=== PATIENT | female | born 1955 | race Caucasian/White ===

== ENCOUNTER → 2017-01-28 | Outpatient (CLI) | payer OTHER ==
[~2017-01-28] MED LIST: BAYER ASPIRIN C81 MG PO; LEVOTHYROXIN0.125 MG PO; METFORMIN500 MG PO; NORVASC10 MG PO; Nizoral 2%15 GM T; PRINIVIL20 M1 PO
== END | disposition home or self-care (01) ==
LOC: US 05:52
DX: K76.0 Fatty (change of) liver, not elsewhere classified (principal); N93.9 Abnormal uterine and vaginal bleeding, unspecified; N95.0 Postmenopausal bleeding; I10 Essential (primary) hypertension; E11.9 Type 2 diabetes mellitus without complications; Z90.49 Acquired absence of other specified parts of digestive tract

== ENCOUNTER → 2017-03-15 | Day surgery (SDC) | payer OTHER ==
[2017-03-09 10:47] LABS: BASO # 0.1 10*3/uL (0.0-0.1); BASO % 0.6 % (0.0-1.0); EOS # 0.2 10*3/uL (0.0-0.4); EOS % 1.7 % (1.0-4.0); HEMATOCRIT 39.7 % (37.0-47.0); HEMOGLOBIN 13.4 g/dl (12.0-16.0); IG # 0.2 10*3/uL (0.0-0.1); LYMPH # 2.5 10*3/uL (1.3-4.4); MEAN CELL VOLUME 88.6 fl (81.0-99.0); MEAN CORPUSCULAR HGB 29.9 pg (27.0-31.0); MEAN CORPUSCULAR HGB CONC 33.8 g/dl (33.0-37.0); MONO # 0.5 10*3/uL (0.1-1.0); MONO % 5.3 % (3.0-9.0); NEUT # 5.4 10*3/uL (2.3-7.9); NEUT % 61.5 % (47.0-73.0); PLATELET COUNT AUTOMATED 271 10*3/uL (130-400); RED BLOOD COUNT 4.48 10*6/uL (4.10-5.10); RED CELL DISTRI WIDTH 13.9 % (0-14.5); WHITE BLOOD COUNT 8.7 10*3/uL (4.8-10.8)
[~2017-03-15] VITALS: Ht 157.4 cm; Wt 113.4 kg
[~2017-03-15] MED LIST changes: +RITALIN5 MG PO; +VITAMIN D32000 UNI1 PO
--- NOTE | ~2017-03-15 | WRIGHTHP ---
[place], [place] PATIENT HISTORY AND PHYSICAL EXAM [facility]: [id number] UNIT #: [id number] ROOM: DOCTOR: FERNANDEZ AMARAL MD BIRTHDATE: [birth year] DOS: 03/15/2017 HISTORY OF PRESENT ILLNESS: This patient is a 61-year-old white female, 3, para 3, who was seen 02/10/2017, with recent ultrasound indicating a normal pelvis with an endometrial thickness of 1.3 cm. The patient's complaints have occurred over the past 3 weeks with 11 days of spotting heavy enough to necessitate pad use. On that day, she was seen, she was bleeding only with urination, etc., but had negative Pap earlier this year by history and has had no genitourinary symptoms. She states that a number of years ago we had addressed irregular bleeding, but this was 8 years ago and evaluation at that time had been negative. The cervical os in the office was noted to be somewhat stenotic and I was unable to penetrate this with the dilator. Bimanual exam was not helpful due to her significant increase in BMI, and we concluded that since we were unable to do the endometrial evaluation in the office that an outpatient hysteroscopy and D and C would be indicated. To that end, the risks, benefits, indications, potential complications and alternatives were reviewed, understanding stated and the consent was signed. PAST MEDICAL HISTORY: Reveals her to be a nonsmoker and nondrinker. She has a history of hypertension and diabetes. She has had 3 pregnancies, 3 vaginal deliveries. She had a negative colonoscopy in April 2016. Her Pap and mammogram were also negative in 2015. MEDICATIONS: The patient is taking levothyroxine 125 mcg daily for thyroid disorder, amlodipine besylate 10 mg daily for hypertension, lisinopril 20 mg daily for hypertension, metformin 500 mg daily for diabetes, Ritalin 5 mg for restless legs syndrome, sleep and she does take vitamin D. She also takes a baby aspirin daily. ALLERGIES: She notes no known allergies. REVIEW OF SYSTEMS: Otherwise is stable. FAMILY HISTORY: Reveals her father from a brain tumor and there is other various forms of breast, lung and uterus and colon cancer in the family. One sister from kidney failure and one son from a motor vehicle accident. PHYSICAL EXAMINATION: GENERAL: Reveals a pleasant white female, 5 feet 1 inches, 253 pounds, BMI is 48 and in no significant distress. HEENT: Stable. NECK: Stable. LUNGS: Stable. CARDIAC: Stable. BREASTS: Stable. ABDOMEN: Normal except for consistent with the BMI. EXTREMITIES: Grossly intact. NEUROLOGICAL: Grossly intact. GENITOURINARY: External genitalia, vagina and cervix all grossly normal, but [place], [place] PATIENT HISTORY AND PHYSICAL EXAM [facility]: [id number] UNIT #: [id number] ROOM: DOCTOR: FERNANDEZ AMARAL MD BIRTHDATE: [birth year] the cervical os was stenotic as I mentioned above. Uterus per ultrasound was normal size, configuration, anteverted and anteflexed. The adnexa were negative. RECTAL: Negative. Stool heme test negative. ASSESSMENT: The patient with postmenopausal bleeding and a significantly thickened endometrial lining per ultrasound. We have inability to evaluate the patient in the office due to cervical stenosis. To that end on 03/15/2017, the patient will undergo an outpatient hysteroscopy and D and C. FERNANDEZ AMARAL MD CM:HISPHYS:PATIENT HISTORY AND PHYSICAL EXAMINATION 1023 RANDY AMARAL MD 03/10/17 1212 interface
--- NOTE | ~2017-03-15 | O ---
[place], [place] OPERATIVE NOTE NAME: JANESSA SMITH UNIT #: [id number] ROOM: DOCTOR: FERNANDEZ MARIO MD BIRTHDATE: [birth year] DOS: 03/15/2017 PREOPERATIVE DIAGNOSES: Postmenopausal bleeding, obesity, with increased risk factors for endometrial atypia and a thickened endometrium equalling 1.3 cm. She also had extremely stenotic cervical os making an office evaluation impossible. POSTOPERATIVE DIAGNOSES: Postmenopausal bleeding, obesity, with increased risk factors for endometrial atypia and a thickened endometrium equalling 1.3 cm. She also had extremely stenotic cervical os making an office evaluation impossible and a prominent anterior uterine polyp. OPERATION: Hysteroscopy, D and C and intrauterine polypectomy. SURGEON: Dr. Mario and Dr. Ventura. ANESTHESIA: MAC. ESTIMATED BLOOD LOSS: Minimal. REPLACEMENTS: IV fluids and Toradol. COMPLICATIONS: There were no complications. The patient's condition to recovery stable. OPERATIVE SUMMARY: The patient was taken to the operating room in supine position. MAC anesthesia, lithotomy position, prepped and draped in routine manner. Cervix was grasped and lacrimal probes were initially used followed by regular dilators entering the intrauterine cavity through this extremely stenotic cervix. Hysteroscopic exam of the intrauterine cavity revealed the fundus and cornual regions to be normal. In the body within the body of the uterus, there was a prominent elongated polyp, which appeared to originate from the 6 o'clock position high up in the body of the uterus. The rest of the body of the uterus, meatus and the lower uterine segment were grossly benign. We then removed the hysteroscope and performed the D and C and intrauterine polypectomy. We reinserted the hysteroscope and exam revealed that the polyp had been removed almost completely intact. The rest of the intrauterine cavity was benign in appearance. All instrumentation was removed noting good hemostasis. The patient was cleaned off, taken out of lithotomy position, awakened and transferred to recovery in satisfactory condition with stable vital signs, good hemostasis, and stable sponge and instrument count. [place], [place] OPERATIVE NOTE NAME: JANESSA SMITH UNIT #: [id number] ROOM: DOCTOR: FERNANDEZ MARIO MD BIRTHDATE: [birth year] FERNANDEZ MARIO MD CM:OPRECORD:OPERATIVE NOTE [id number] RANDY MARIO MD 03/15/17 1257 interface
[2017-03-15 08:05] VITALS: BP 123/52
[2017-03-15 10:06] VITALS: BP 132/66
[2017-03-15 10:20] VITALS: BP 108/66
[2017-03-15 10:36] VITALS: BP 110/59
== END | disposition home or self-care (01) ==
LOC: SDC 03-09 09:30
PROVIDERS: Obstetrics & Gynecology
DX: N84.0 Polyp of corpus uteri (principal); I10 Essential (primary) hypertension; E11.9 Type 2 diabetes mellitus without complications; Z79.82 Long term (current) use of aspirin; Z79.84 Long term (current) use of oral hypoglycemic drugs; Z79.899 Other long term (current) drug therapy; Z80.0 Family history of malignant neoplasm of digestive organs; E03.9 Hypothyroidism, unspecified; Z98.890 Other specified postprocedural states; Z82.49 Family history of ischemic heart disease and other diseases of the circulatory system; E66.9 Obesity, unspecified; Z68.42 Body mass index [BMI] 45.0-49.9, adult; N88.2 Stricture and stenosis of cervix uteri

== ENCOUNTER → 2018-11-30 | Outpatient (CLI) | payer OTHER | END | disposition home or self-care (01) | LOC: MAMMO 07:48 | DX: Z12.31 Encounter for screening mammogram for malignant neoplasm of breast (principal) ==

== ENCOUNTER → 2023-01-08 | Outpatient (CLI) | payer MEDICARE | END | disposition home or self-care (01) | LOC: RAD 00:28 | PROVIDERS: ATTEND Internal Medicine Nephrology | DX: N95.9 Unspecified menopausal and perimenopausal disorder (principal) ==

== ENCOUNTER → 2023-12-10 | Outpatient (CLI) | payer MEDICARE ==
[2023-12-10 14:51] LABS: BASO % 0.4 % (0.0-1.0); EOS # 0.1 10*3/uL (0.0-0.4); EOS % 0.8 % (1.0-4.0); HEMATOCRIT 39.9 % (37.0-47.0); LYMPH # 2.5 10*3/uL (1.3-4.4); LYMPH % 23.3 % (27.0-41.0); MEAN CELL VOLUME 88.1 fl (81.0-99.0); MEAN CORPUSCULAR HGB 28.7 pg (27.0-31.0); MEAN CORPUSCULAR HGB CONC 32.6 g/dl (33.0-37.0); MEAN PLATELET VOLUME 9.5 fl (9.6-12.3); MONO # 0.5 10*3/uL (0.1-1.0); MONO % 4.7 % (3.0-9.0); NEUT # 7.6 10*3/uL (2.3-7.9); NEUT % 70.2 % (47.0-73.0); PLATELET COUNT AUTOMATED 324 10*3/uL (130-400); RED BLOOD COUNT 4.53 10*6/uL (4.10-5.10); RED CELL DISTRI WIDTH 13.5 % (0-14.5); WHITE BLOOD COUNT 10.8 10*3/uL (4.8-10.8)
[2023-12-10 15:15] LABS: ALKALINE PHOSPHATASE 79 U/L (46-116); BUN 15 mg/dl (9-23); CHLORIDE 103 mmol/L (98-107); CHOLESTEROL 197 mg/dL (<200); LDL CHOLESTEROL 129 mg/dL (9-159); POTASSIUM 4.1 mmol/L (3.4-5.1); SGPT/ALT 10 U/L (5-49); TOTAL PROTEIN 7.5 gm/dL (6.0-8.0); TRIGLYCERIDES 103 mg/dl (<150)
== END ==
LOC: LAB 14:31
PROVIDERS: ATTEND Nurse Practitioner
DX: Z51.81 Encounter for therapeutic drug level monitoring (principal); I10 Essential (primary) hypertension; E03.9 Hypothyroidism, unspecified; E11.9 Type 2 diabetes mellitus without complications

== ENCOUNTER → 2024-01-27 | Outpatient (CLI) | payer MEDICARE ==
[2024-01-27 12:13] LABS: T3 UPTAKE 33.5 % (22.4-36.7); THYROXINE (T4) TOTAL 8.8 ug/dl (4.5-10.9)
== END | disposition home or self-care (01) ==
LOC: LAB 09:50 → MRI 10:00
PROVIDERS: ATTEND Psychiatry & Neurology Neurology
DX: I67.82 Cerebral ischemia (principal); G25.0 Essential tremor

== ENCOUNTER → 2024-03-01 | Outpatient (CLI) | payer MEDICARE | END | disposition home or self-care (01) | LOC: LAB 14:24 | PROVIDERS: ATTEND Psychiatry & Neurology Neurology | DX: G25.0 Essential tremor (principal) ==